=== PATIENT | male | born 1940 | race Caucasian/White ===

== ENCOUNTER 2021-04-14 13:49 | Outpatient (CLI) | payer MEDICARE, OTHER | END 2021-04-14 13:50 | disposition home or self-care (01) | LOC: COV 13:49 | PROVIDERS: ATTEND Urology | DX: Z01.812 Encounter for preprocedural laboratory examination (principal); Z20.822 Contact with and (suspected) exposure to COVID-19 ==

== ENCOUNTER 2022-03-13 09:26 | Emergency (ER) | payer MEDICARE, OTHER ==
[2022-03-13] MEDS ORDERED: BUFFERED LIDOCAINE 10 ML SYRINGE SUBQ STA (09:58)
--- NOTE | 2022-03-13 09:59 | ED Physician Documentation ---
PD HPI HEAD INJURY - Stated complaint Stated Complaint: FALL/EYEBROW LAC - Chief complaint Chief Complaint: Trauma Hd/Nk - History obtained from History obtained from: Patient - Additional information Additional information: 81-year-old gentleman on warfarin for A. fib presents after a head injury at 630 this morning. He was walking him in his room and he had a simple mechanical trip and fall as things were out of place in his room. He hit the windowsill going down and has a laceration above the left eyebrow. No other injuries. No loss of consciousness or headache. About 3 to 4 weeks ago his INR was slightly subtherapeutic at about 1.8 or 1.9 he recalls, that is the most recent INR. Review of Systems Constitutional: reports: Reviewed and negative Eyes: reports: Reviewed and negative Ears: reports: Reviewed and negative Nose: reports: Reviewed and negative PD PAST MEDICAL HISTORY - Past Medical History Cardiovascular: High cholesterol, Coronary artery disease, Atrial fibrillation, Other Respiratory: Sleep apnea, CPAP use Endocrine/Autoimmune: None GI: None : Frequency HEENT: Chronic hearing loss Psych: None Derm: None - Past Surgical History Past Surgical History: Yes Cardiovascular: Coronary stent HEENT: Tonsil/Adenoidectomy - Present Medications Home Medications: Ambulatory Orders Medication Instructions Recorded Confirmed Atorvastatin [Lipitor] 20 mg ORAL DAILY 03/18/15 03/13/22 Finasteride 5 mg PO DAILY 03/18/15 03/13/22 Isosorbide Dinit/Hydralazine 30 mg PO DAILY 03/18/15 03/13/22 [Bidil Tablet] Verapamil ER [Calan SA] 240 mg PO DAILY 03/18/15 03/13/22 Warfarin [Coumadin] 5 mg PO 1400 03/18/15 03/13/22 Bimatoprost 1 drops OP DAILY 03/13/22 03/13/22 - Allergies Allergies/Adverse Reactions: Allergies Allergy/AdvReac Type Severity Reaction Status Date / Time tamsulosin HCl * AdvReac Respiratory Verified 03/13/22 09:44 [From Flomax] - Social History Does the pt smoke?: No Smoking Status: Never smoker Does the pt drink ETOH?: No Does the pt have substance abuse?: No - Immunizations Immunizations are current?: Yes PD ED PE NORMAL - Vitals Vital signs reviewed: Yes - General General: Alert and oriented X 3, No acute distress - HEENT HEENT: PERRL, EOMI, Other (There is a 2 cm laceration just above the left eyebrow that is gaping.) - Neck Neck: No bony TTP - Neuro Neuro: Alert and oriented X 3, 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, No motor deficit, No sensory deficit, Normal speech Eye Opening: Spontaneous Motor: Obeys Commands Verbal: Oriented GCS Score: 15 - Psych Psych: Normal mood, Normal affect Results - Vitals Vitals: Vital Signs - 24 hr 03/13/22 03/13/22 09:39 10:43 Temperature 36.6 C Heart Rate 63 69 Respiratory 16 16 Rate Blood Pressure 127/64 129/79 O2 Saturation 99 97 Oxygen O2 Source Room air - Labs Labs: Laboratory Tests 03/13/22 10:06 INR (Fingerstick) 3.1 H - Rads (name of study) CT head and C-spine showed age-related atrophy but no acute evidence of trauma Radiology: EMP read contemporaneously Procedures - Laceration (location) forehead Length in cm: 2 Wound type: Linear, Into subcut fat Neurovascular status: Sensory intact, Motor intact Tendon involvement: Tendon intact Anesthesia: Lidocaine 1% Wound preparation: Irrigated copiously NS Skin layer closure: Prolene (6-0), Interrupted, Size #-0 - enter number (6-0), Sutures - enter # (5) Other: Patient tolerated well, No complications, Neurovascular intact Departure - Departure Disposition: 01 Home, Self Care Clinical Impression: On Coumadin for atrial fibrillation Facial laceration Qualifiers: Encounter type: initial encounter Qualified Code(s): S01.81XA - Laceration without foreign body of other part of head, initial encounter Head injury Qualifiers: Encounter type: initial encounter Qualified Code(s): S09.90XA - Unspecified injury of head, initial encounter Condition: Stable Instructions: ED Laceration Facial Sutr Tape Comments: Your INR today is 3.1. You can probably take a half dose of warfarin with your next dose. Come back for any signs of infection which would include: Redness, swelling, drainage, increased pain, or fevers. You can wash it soap and water. Keep it covered and moist with bacitracin ointment which is available over the counter; avoid neosporin. Follow-up with your physician in 6 or 7 days for suture removal. You are up-to-date on tetanus having had your last one in 2014. You will be due in 3 years.
--- NOTE | 2022-03-13 10:31 | CT Report ---
PROCEDURE: CT brain without contrast INDICATIONS: head injury TECHNIQUE: Noncontrast 4.5 mm thick angled axial sections acquired from the foramen magnum to the vertex. For r adiation dose reduction, the following was used: automated exposure control, adjustment of mA and/or kV according to patient size. COMPARISON: None. FINDINGS: Image quality: Excellent. CSF spaces: Basal cisterns are patent. No extra-axial fluid collections. Ventricles are normal in size and shape. Brain: No midline shift. No intracranial masses or hemorrhage. Landa-white matter interface is norm al. Moderate atrophy and multifocal white matter chronic ischemic change noted. Atherosclerotic vasc ular calcification noted in the cavernous segments of both internal carotid arteries as well as the i ntradural vertebral arteries. Skull and face: Calvarium and visualized facial bones are intact, without suspicious lesions. Sinuses: Visualized sinuses and mastoids are clear. IMPRESSION: Atrophy and chronic ischemic change without intracranial hemorrhage or mass effect Reviewed by: Gatito Saucedo MD on 03/13/2022 9:30 AM [facility] Approved by: Gatito Saucedo MD on 03/13/2022 9:30 AM [facility] Station ID: [id number]
[2022-03-13] MEDS ORDERED: LIDOCAINE 1% 2 ML VIAL ONE ×2 (10:34→10:35)
[2022-03-13 10:43] VITALS: BP 129/79
--- NOTE | 2022-03-13 10:46 | CT Report ---
PROCEDURE: CERVICAL SPINE WO INDICATIONS: head injury TECHNIQUE: Noncontrast 3 mm thick sections acquired from the skull base to the T4 level. Sagittal and coronal r eformats were then constructed. For radiation dose reduction, the following was used: automated exp osure control, adjustment of mA and/or kV according to patient size. COMPARISON: None. FINDINGS: Image quality: Excellent. Bones: No fractures or dislocations. Visualized superior ribs are intact. Soft tissues: Prevertebral soft tissues are normal in thickness. No paravertebral hematomas. No ap ical pneumothoraces. IMPRESSION: No CT evidence of acute traumatic cervical spine injury. Reviewed by: Ceasar Mosley MD on 03/13/2022 10:44 AM PDT Approved by: Ceasar Mosley MD on 03/13/2022 10:44 AM PDT Station ID: [id number]
== END 2022-03-13 10:56 | disposition home or self-care (01) ==
LOC: ED 09:26
DX: S01.112A Laceration without foreign body of left eyelid and periocular area, initial encounter (principal); S09.90XA Unspecified injury of head, initial encounter; W01.198A Fall on same level from slipping, tripping and stumbling with subsequent striking against other object, initial encounter; Y93.01 Activity, walking, marching and hiking; Y92.003 Bedroom of unspecified non-institutional (private) residence as the place of occurrence of the external cause; R79.1 Abnormal coagulation profile; I48.91 Unspecified atrial fibrillation; Z79.01 Long term (current) use of anticoagulants
CPT/HCPCS: 12011; 85610; 99282; 99284

== ENCOUNTER 2022-04-12 09:44 | Emergency (ER) | payer MEDICARE, OTHER ==
[2022-04-12 09:55] VITALS: BP 122/70
--- NOTE | 2022-04-12 10:13 | ED Physician Documentation ---
PD HPI HEADACHE - Stated complaint Stated Complaint: MIGRAINE - Chief complaint Chief Complaint: Neuro - History obtained from History obtained from: Patient - Additional information Additional information: Patient is a 81-year-old male with a history of atrial fibrillation on warfarin presenting for evaluation of intermittent left-sided headaches that have been present since a fall 1 month ago. Patient was seen in the emergency department on March 13 after mechanical fall and had a CT scan of his brain that was negative. He also had a forehead laceration that was sutured and Has been healing well. Since his fall he has had intermittent episodes of left-sided headaches that At times disrupt his sleep. He does not currently have a headache.He denies any known exacerbating or alleviating factors. He did try Tylenol 1 day but this did not seem to help so he has not tried anything further. He called his primary care doctor's office yesterday and the triage nurse directed him to return to an emergency department.He denies feeling dizziness, syncopal, having vision changes, chest pain, focal deficits. His last INR check was a few weeks ago. Review of Systems Constitutional: denies: Fever Nose: denies: Congestion Cardiac: denies: Chest pain / pressure Respiratory: denies: Dyspnea GI: denies: Abdominal Swelling, Vomiting : denies: Dysuria Musculoskeletal: denies: Neck pain, Back pain Neurologic: reports: Headache PD PAST MEDICAL HISTORY - Past Medical History Cardiovascular: High cholesterol, Coronary artery disease, Atrial fibrillation, Other Respiratory: Sleep apnea, CPAP use Neuro: None Endocrine/Autoimmune: None GI: None : Frequency HEENT: Chronic hearing loss Psych: None Musculoskeletal: None Derm: None - Past Surgical History Past Surgical History: Yes Cardiovascular: Coronary stent HEENT: Tonsil/Adenoidectomy - Present Medications Home Medications: Ambulatory Orders Medication Instructions Recorded Confirmed Atorvastatin [Lipitor] 20 mg ORAL DAILY 03/18/15 04/12/22 Finasteride 5 mg PO DAILY 03/18/15 04/12/22 Isosorbide Dinit/Hydralazine 30 mg PO DAILY 03/18/15 04/12/22 [Bidil Tablet] Verapamil ER [Calan SA] 240 mg PO DAILY 03/18/15 04/12/22 Warfarin [Coumadin] 5 mg PO 1400 03/18/15 04/12/22 Bimatoprost 1 drops OP DAILY 03/13/22 04/12/22 - Allergies Allergies/Adverse Reactions: Allergies Allergy/AdvReac Type Severity Reaction Status Date / Time tamsulosin HCl * AdvReac Respiratory Verified 04/12/22 09:56 [From Flomax] - Social History Does the pt smoke?: No Smoking Status: Never smoker Does the pt drink ETOH?: No Does the pt have substance abuse?: No - Immunizations Immunizations are current?: Yes PD ED PE NORMAL - General General: Alert and oriented X 3, No acute distress, Well developed/nourished - HEENT HEENT: Atraumatic (Well-healed scar to left forehead), Moist mucous membranes - Neck Neck: Supple, no meningeal sign - Cardiac Cardiac: RRR, Strong equal pulses - Respiratory Respiratory: No respiratory distress, Clear bilaterally - Abdomen Abdomen: Soft, Non tender - Derm Derm: Warm and dry - Extremities Extremities: No edema - Neuro Neuro: Alert and oriented X 3, 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, No motor deficit, No sensory deficit, Normal speech Eye Opening: Spontaneous Motor: Obeys Commands Verbal: Oriented GCS Score: 15 Results - Vitals Vitals: Vital Signs - 24 hr 04/12/22 09:50 Temperature 36.0 C L Heart Rate 91 Respiratory 18 Rate Blood Pressure 122/70 O2 Saturation 99 Oxygen O2 Source Room air - Labs Labs: Laboratory Tests 04/12/22 10:27 PT 30.9 H INR 2.9 H PD MEDICAL DECISION MAKING - ED course Complexity details: reviewed results, re-evaluated patient ED course: Patient is a 81-year-old male presenting for evaluation of intermittent left-s ided headache since striking his head 1 month ago. He currently does not have any symptoms. His neuro exam is normal. A repeat head CT was obtained as patient is anticoagulated on warfarin and is negative for signs of a bleed. Patient's INR is therapeutic at 2.9. He was counseled on following up with his primary care doctor and advised on concerning symptoms to return for. He is ambulatory at discharge. Departure - Departure Disposition: 01 Home, Self Care Clinical Impression: Headache, Warfarin anticoagulation Condition: Stable Instructions: ED Cephalgia Unspecified Comments: You were evaluated for headache since hitting your head 1 month ago. Your repeat CT scan again appears stable and does not show any signs of bleeding. Your warfarin level is 2.9. Please call your primary care doctor for close follow-up. Discharge Date/Time: 04/12/22 11:43
--- NOTE | 2022-04-12 11:09 | CT Report ---
PROCEDURE: HEAD WO INDICATIONS: trauma weeks ago/persistent headaches; warfarin TECHNIQUE: Noncontrast 4.5 mm thick angled axial sections acquired from the foramen magnum to the vertex. For r adiation dose reduction, the following was used: automated exposure control, adjustment of mA and/or kV according to patient size. COMPARISON: 03/13/2022 FINDINGS: Image quality: Excellent. There are no findings to suggest acute infarct, intracranial hemorrhage, or mass lesion. Ventricles and CSF spaces appear within normal limits for the patient's age. No extra-axial fluid collections ar e identified. Visualized portions of the orbits and paranasal sinuses appear within normal limits. No acute osseous abnormality is seen. IMPRESSION: 1. No evidence for acute intracranial abnormality identified. 2. Age-appropriate volume loss. Reviewed by: Valentin Yan MD on 04/12/2022 11:07 AM [facility] Approved by: Valentin Yan MD on 04/12/2022 11:07 AM [facility] Station ID: [id number]
[2022-04-12 11:20] LABS: INR 2.9 (0.8-1.2); PT - PROTHROMBIN TIME 30.9 secs (9.9-12.6)
== END 2022-04-12 11:43 | disposition home or self-care (01) ==
LOC: ED 09:44
DX: R51.9 Headache, unspecified (principal); Z79.01 Long term (current) use of anticoagulants
CPT/HCPCS: 36415; 85610; 99282; 99284